=== PATIENT | male | born 1945 | race American Indian/Alaskan Native ===

== ENCOUNTER 2017-07-08 11:30 | Emergency (ER) | payer MEDICARE ==
[2017-07-08 11:46] VITALS: BP 181/83; PULSE 57; RESP 20; TEMP 97.4; O2SAT 100
--- NOTE | 2017-07-08 12:40 | C.PDOC ---
History Of Present Illness Royal Harris is a 72 year old male, with a significant past medical history of chronic kidney disease, who was sent to the emergency department by Dr. Bentley after he had a Chest X-Ray done that showed a ? infiltrate. Patient reports he was currently being worked up for going on dialysis. Patient denies any fever, chills or other medical complaints. Patient reports he was recently admitted to [facility] and discharged on thursday. Denies sob or chest pain PMD: None provided. Time Seen by Provider: 07/08/17 12:06 Chief Complaint (Nursing): Medical Clearance History Per: Patient History/Exam Limitations: no limitations Onset/Duration Of Symptoms: Days Current Symptoms Are (Timing): Gone Severity: Mild Reports Recently: Treated By A Physician Past Medical History Reviewed: Historical Data, Nursing Documentation, Vital Signs Vital Signs: Last Vital Signs Temp 97.4 F L 07/08/17 11:44 Pulse 57 L 07/08/17 11:44 Resp 20 07/08/17 11:44 BP 181/83 H 07/08/17 11:44 Pulse Ox 100 07/08/17 13:44 - Medical History PMH: HTN, Chronic Kidney Disease, Seizures (7 YEARS AGO) Surgical History: No Surg Hx - [facility] Procedures INCIS W REM OF FORIEGN BODY OR DEV FROM SKIN & SUBCUT TISSUE (10/07/13) OPEN AND OTHER RIGHT HEMICOLECTOMY (07/29/13) Family History: States: Unknown Family Hx - Social History Hx Tobacco Use: No Hx Alcohol Use: No Hx Substance Use: No - Immunization History Hx Tetanus Toxoid Vaccination: Yes Hx Influenza Vaccination: Yes Hx Pneumococcal Vaccination: Yes Review Of Systems Constitutional: Negative for: Fever, Chills Physical Exam - Physical Exam Appears: No Acute Distress Skin: Warm, Dry, No Rash Head: Atraumatic, Normacephalic Eye(s): bilateral: Normal Inspection Neck: Normal ROM Cardiovascular: Rhythm Regular, No Murmur Respiratory: Normal Breath Sounds (clear auscultation b/l ), No Wheezing Extremity: Normal ROM, Pedal Edema (trace on lower extremities, chronic), No Deformity Neurological/Psych: Oriented x3 (alert) ED Course And Treatment ECG: Interpreted By Me ECG Rhythm: Sinus Bradycardia ECG Interpretation: No Acute Changes Rate From EC O2 Sat by Pulse Oximetry: 100 (RA) Pulse Ox Interpretation: Normal Progress Note: Patient refused further treatment and signed out AMA Reassessment Condition: Unchanged Medical Decision Making Medical Decision Making: Initial impression: Medical evaluation Initial Plan: --EKG --reevaluation --Radiologist called, CXR was abnormal, pt was infiltrates in lungs, but unsure if it is fluid or infiltrate. --Called Dr. Bentley and was told to come to ER. \ --Dr. Bentley with patient, but patient states he doesn't want anything done, that he was just recently discharged from [facility] on Thursday. Pt states he feels fine, and the SOB is chronic. Pt is currently refusing further treatment. Leaving Against Medical Advice (AMA): This patient is choosing to leave against medical advice. I have personally explained to the pt that choosing to do so may result in permanent bodily harm or . I have discussed at great length that without further evaluation and monitoring there may be unforeseen circumstances and/or deterioration causing permanent bodily harm or as a result of their choice. The pt verbalized these risks back to the physician in laymans terms. The pt is alert, oriented, and shows the mental capacity to make clear decisions regarding the pts health care at this time. The pt continues to wish to leave against medical advice. In light of the pts decision to leave AMA, follow-up has been arranged and the pt is aware of the importance of following up as instructed. The pt has been advised that they should return to the ED immediately if they change their mind at any time, or if their condition begins to change or worsen in any way. Disposition Counseled Patient/Family Regarding: Diagnosis, Need For Followup - Disposition Disposition: AGAINST MEDICAL ADVICE Disposition Time: 13:00 Condition: STABLE Instructions: Dyspnea (ED) Forms: [facility] ([place]) - POA Present On Arrival: None - Clinical Impression Clinical Impression: Medical assessment - Scribe Statement Hong Souza All medical record entries made by the Scribe were at my direction and personally dictated by me. I have reviewed the chart and agree that the record accurately reflects my personal performance of the history, physical exam, medical decision making, and the department course for this patient. I have also personally directed, reviewed, and agree with the discharge instructions and disposition.
--- NOTE | 2017-07-08 12:44 | C.PDOC ---
Time Seen by Provider: 07/08/17 12:06 Chief Complaint (Nursing): Medical Clearance Past Medical History Vital Signs: Last Vital Signs Temp 97.4 F L 07/08/17 11:44 Pulse 57 L 07/08/17 11:44 Resp 20 07/08/17 11:44 BP 181/83 H 07/08/17 11:44 Pulse Ox 100 07/08/17 11:44 - Medical History PMH: HTN, Chronic Kidney Disease, Seizures (7 YEARS AGO) - [facility] Procedures INCIS W REM OF FORIEGN BODY OR DEV FROM SKIN & SUBCUT TISSUE (10/07/13) OPEN AND OTHER RIGHT HEMICOLECTOMY (07/29/13) Family History: States: Unknown Family Hx - Social History Hx Tobacco Use: No Hx Alcohol Use: No Hx Substance Use: No - Immunization History Hx Tetanus Toxoid Vaccination: Yes Hx Influenza Vaccination: Yes Hx Pneumococcal Vaccination: Yes ED Course And Treatment O2 Sat by Pulse Oximetry: 100 Disposition - Disposition
--- NOTE | 2017-07-09 22:04 | CARD ---
APPROVED REPORT EKG Measurement Heart [id number] <Conclusion> Sinus bradycardia Otherwise normal ECG
== END 2017-07-08 12:59 | disposition left against medical advice (07) ==
LOC: C.ER 11:30
DX: Z00.00 Encounter for general adult medical examination without abnormal findings (principal); I12.9 Hypertensive chronic kidney disease with stage 1 through stage 4 chronic kidney disease, or unspecified chronic kidney disease; N18.9 Chronic kidney disease, unspecified